=== PATIENT | male | born 1985 | race Caucasian/White ===

== ENCOUNTER 2016-10-18 10:29 | Emergency (ER) | payer BC ==
[2016-10-18] MEDS ORDERED: LORazepam TAB(*) 1 MG PO ONE (11:03)
--- NOTE | 2016-10-18 11:06 | ED ---
Psychiatric Complaint - HPI Summary HPI Summary: 30M presents with anxiety for a couple days. He admits to feeling shaky, palpitations, nauseous. He denies any chest pain, SOB, or abdominal pain. He states he has never had anxiety this bad before. He states that normal if he is anxious it lasts a couple hours and then goes away. He has not had a panic attacks in months. He denies any si/hi. He has not tried anything. He denies any particular reason for the anxiety. His suboxone was lowered two weeks ago but he states that is not what is causing it. He does not see anyone for his anxiety. - History Of Current Complaint Chief Complaint: EDGeneral Time Seen by Provider: 10/18/16 10:54 - Allergies/Home Medications Allergies/Adverse Reactions: Allergies Allergy/AdvReac Type Severity Reaction Status Date / Time No Known Allergies Allergy Verified 11/05/14 12:50 PMH/Surg Hx/FS Hx/Imm Hx Endocrine/Hematology History: Denies: Hx Anticoagulant Therapy History: Reports: Hx Renal Disease Infectious Disease History: No Infectious Disease History: Denies: Traveled Outside the [place] in Last 30 Days - Family History Known Family History: Positive: Hypertension - Social History Alcohol Use: None Substance Use Type: Reports: None Substance Use Comment - Amount & Last Used: hx opioid dependence Smoking Status (MU): Former Smoker Review of Systems Negative: Fever Positive: Palpitations. Negative: Chest Pain Negative: Shortness Of Breath Positive: Anxious All Other Systems Reviewed And Are Negative: Yes Physical Exam Triage Information Reviewed: Yes Vital Signs On Initial Exam: Initial Vitals Temp Pulse Resp BP Pulse Ox 99.2 F 109 17 143/81 100 10/18/16 10:33 10/18/16 10:33 10/18/16 10:33 10/18/16 10:33 10/18/16 10:33 Vital Signs Reviewed: Yes Appearance: Positive: Well-Appearing Skin: Positive: Warm, Dry Head/Face: Positive: Normal Head/Face Inspection Eyes: Positive: Normal, EOMI, NISHI, Conjunctiva Clear ENT: Positive: Normal ENT inspection, Pharynx normal, TMs normal Respiratory/Lung Sounds: Positive: Clear to Auscultation, Breath Sounds Present Cardiovascular: Positive: Normal, Tachycardia Abdomen Description: Positive: Nontender, Soft Bowel Sounds: Positive: Present Psychiatric: Positive: Anxious - [place] Coma Scale Coma Scale Total: 15 Diagnostics - Vital Signs Vital Signs Temp Pulse Resp BP Pulse Ox 10/18/16 10:58 98.4 F 84 13 161/65 100 10/18/16 10:33 99.2 F 109 17 143/81 100 - Laboratory Result Diagrams: 10/18/16 10:55 10/18/16 10:55 Lab Statement: Any lab studies that have been ordered have been reviewed, and results considered in the medical decision making process. - EKG No standard instances Cardiac Rate: NL EKG Rhythm: Sinus Rhythm ST Segment: Normal Ectopy: None Re-Evaluation - Re-Evaluation First Eval Re-Evaluation Time: 11:50 Change: Improved Comment: feeling better after ativan Course/Dx - Course Course Of Treatment: 30M presents with anxiety for a couple days. He admits to feeling shaky, palpitations, nauseous. He denies any chest pain, SOB, or abdominal pain. He states he has never had anxiety this bad before. He states that normal if he is anxious it lasts a couple hours and then goes away. He has not had a panic attacks in months. He denies any si/hi. He has not tried anything. PE exam normal except tachycardia but EKG shows NSR. discussed will try some ativan in ED. will ativan patient feels better. labs noraml. will prescribed hydroxyzine and told to follow up with primary. patient understands and agrees with plan. - Differential Dx/Clinical Impression Differential Diagnosis/HQI/PQRI: Positive: Anxiety, Other - thyroid, SVT Provider Diagnosis: Anxiety Discharge - Discharge Plan Condition: Good Disposition: HOME Patient Education Materials: Anxiety (ED) Referrals: [facility] [Outside] Additional Instructions: Practice deep breathing Take hydroxyzine up to three tablets daily Follow up with primary Return to ED if develop any new or worsening symptoms
[2016-10-18 11:32] LABS: Hematocrit 46 % (42-52); Mean Corpuscular HGB Conc 33 g/dl (31-36); Mean Corpuscular Hemoglobin 29 pg (27-31); Mean Corpuscular Volume 89 fL (80-94); Mean Platelet Volume 9 um3 (7.4-10.4); Red Blood Count 5.16 10^6/ul (4.0-5.4); Red Cell Distribution Width 12 % (10.5-15); White Blood Count 4.4 10^3/ul (3.5-10.8)
[2016-10-18 11:42] LABS: Acetaminophen < 15 mcg/mL; Alcohol < 10 mg/dL (<10); Salicylate < 2.50 mg/dL (<30)
[2016-10-18 11:45] LABS: Urine Bilirubin Negative (Negative); Urine Glucose Negative (Negative); Urine Nitrite Negative (Negative)
[2016-10-18 11:45] LABS: ALT 24 U/L (7-52); AST 19 U/L (13-39); Albumin 4.5 g/dL (3.2-5.2); Alkaline Phosphatase 47 U/L (34-104); Anion Gap 6 mmol/L (2-11); BUN/Creatinine Ratio 6.2 (8-20); Blood Urea Nitrogen 8 mg/dL (6-24); CO2 Carbon Dioxide 28 mmol/L (22-32); Calcium 9.4 mg/dL (8.6-10.3); Chloride 103 mmol/L (101-111); EGFR African American 83.9 (>60); EGFR Non-African American 65.3 (>60); Globulin 2.5 g/dL (2-4); Glucose 143 mg/dL (70-100); Potassium 3.5 mmol/L (3.5-5.0); Sodium 137 mmol/L (133-145)
[2016-10-18] MEDS ORDERED: diPHENhydraMINE PO* 50 MG PO ONE (11:49)
[2016-10-18 11:52] LABS: TSH (Thyroid Stimulating Horm) 2.96 mcIU/mL (0.34-5.60)
[2016-10-18 11:55] LABS: Benzodiazepine Urine Screen None Detected (None Detect)
[2016-10-18 12:28] VITALS: BP 133/54
== END 2016-10-18 12:37 | disposition home or self-care (01) ==
LOC: ED 10:29
DX: F41.9 Anxiety disorder, unspecified (principal); R00.2 Palpitations; Z87.891 Personal history of nicotine dependence
CPT/HCPCS: 36415; 80053; 80307; 80320; 80329; 81003; 84443; 85025; 93005; 99283; A9270-GY; G0480